=== PATIENT | female | born 1980 | race African-American/Black ===

== ENCOUNTER 2019-03-25 12:42 | Emergency (ER) | payer OTHER ==
[~2019-03-25] VITALS: Ht 165.1 cm; Wt 58.0 kg
[2019-03-25] MEDS ORDERED: ONDANSETRON HCL 4MG TABLET PO ONE (13:15)
[2019-03-25 13:19] VITALS: BP 100/59
== END 2019-03-25 13:39 | disposition home or self-care (01) ==
LOC: ER 13:34
DX: O26.891 Other specified pregnancy related conditions, first trimester (principal); Z3A.01 Less than 8 weeks gestation of pregnancy
CPT/HCPCS: 99283; Q0162